=== PATIENT | female | born 1960 | race Caucasian/White ===

== ENCOUNTER 2021-02-27 09:58 | Observation (INO) ==
[2021-02-27] MEDS ORDERED: Aspirin 81 MG TAB.CHEW PO SCH (11:15)
[2021-02-27 11:18] LABS: Basophils # 0.1 K/mcL (0.0-0.2); Basophils % 1.8 %; Eosinophils # 0.4 K/mcL (0.0-0.6); Hematocrit 38.5 % (35.3-44.9); Hemoglobin 12.6 g/dL (11.5-15.4); Immature Granulocytes % 0.3 % (0-4); Lymphocytes # 1.8 K/mcL (0.6-4.6); Lymphocytes % 24.7 %; Mean Corpuscular HGB Conc 32.7 g/dL (31.6-35.5); Mean Corpuscular Hemoglobin 28.8 pg (28.0-33.3); Mean Corpuscular Volume 88.1 fL (83.0-100.0); Monocytes # 0.6 K/mcL (0.0-1.3); Monocytes % 8.7 %; Neutrophils # 4.3 K/mcL (1.6-8.9); Platelet Count 280 K/mcL (140-400); Red Blood Count 4.37 M/mcL (3.82-4.97); Red Cell Distribution Width 14.8 % (11.5-14.5); Segmented Neutrophils % 59.5 %; White Blood Count 7.2 K/mcL (4.3-11.1)
[2021-02-27 11:24] LABS: Prothrombin Time 11.4 Seconds (9.4-12.1)
[2021-02-27 11:27] LABS: Activated Partial Thrombo Time 27.9 Seconds (26.0-36.0)
[2021-02-27 11:28] LABS: Bilirubin,Urine Negative (Negative); Blood,Urine Negative (Negative); Clarity,Urine Clear (Clear); Color,Urine Colorless (Yellow); Glucose,Urine (UA) Normal (Normal); Ketones,Urine Negative (Negative); Leukocyte Esterase,Urine Negative (Negative); Nitrite,Urine Negative (Negative); PH,Urine 7.5 pH Units (5.0-8.0); Protein,Urine Negative (Neg-Trace); Specific Gravity,Urine 1.007 (1.010-1.025); Urobilinogen,Urine Normal (Normal)
[2021-02-27 11:53] LABS: BUN/Creatinine Ratio 18 (6-26); Blood Urea Nitrogen 16 mg/dL (8-23); Calcium 9.3 mg/dL (8.6-10.3); Carbon Dioxide 24 mEq/L (23-29); Chloride 110 mEq/L (98-107); Glucose 79 mg/dL (70-105); Osmolality,Calculated 294 (280-300); Potassium 3.8 mEq/L (3.5-5.1); Sodium 142 mEq/L (136-145); Troponin I < 0.03 ng/mL (< 0.04); eGFR For African Americans > 60 (> 60); eGFR For Non-African Americans > 60 (> 60)
[2021-02-27] MEDS ORDERED: Isovue-370 500 ML BOTTLE IVP ONE (11:58)
[2021-02-27 12:46] LABS: Magnesium 2.1 mg/dL (1.6-2.6); Phosphorous 2.5 mg/dL (2.7-4.5)
[2021-02-27] MEDS ORDERED: Ondansetron ODT 4 MG TAB.RAPDIS SL PRN (14:13)
[2021-02-27] MEDS ORDERED: Melatonin 3 MG TABLET PO PRN (14:13)
[2021-02-27] MEDS ORDERED: Naloxone 0.4 MG/ML INJ IVP PRN (14:13)
[2021-02-27] MEDS ORDERED: Mag Hydrox/Al Hydrox/Simeth 30 ML UDC PO PRN (14:13)
[2021-02-27] MEDS ORDERED: MOM Conc 10 ML UD.LIQ PO PRN (14:13)
[2021-02-27] MEDS ORDERED: Perflutren Lipid Microsphere 1.3 ML in 0.9 % Sodium Chloride 8.7 ML IVP PRN (14:20)
[2021-02-27] MEDS: Acetaminophen 325 MG TABLET PO PRN (15:49)
[2021-02-28 05:14] LABS: Hematocrit 37.4 % (35.3-44.9); Mean Corpuscular HGB Conc 32.1 g/dL (31.6-35.5); Mean Corpuscular Hemoglobin 28.7 pg (28.0-33.3); Mean Corpuscular Volume 89.5 fL (83.0-100.0); Mean Platelet Volume 10.7 fL (9.4-12.4); Platelet Count 266 K/mcL (140-400); Red Blood Count 4.18 M/mcL (3.82-4.97); Red Cell Distribution Width 15.1 % (11.5-14.5); White Blood Count 7.3 K/mcL (4.3-11.1)
[2021-02-28] MEDS: *HR* Enoxaparin 40 MG/0.4 ML SYRINGE SQ SCH (05:34)
[2021-02-28 05:36] LABS: Alanine Aminotransferase 13 Units/L (7-52); Albumin 3.6 g/dL (3.5-5.7); Albumin/Globulin Ratio 1.4 (1.1-2.2); Alkaline Phosphatase 52 Units/L (34-104); Aspartate Amino Transferase 13 Units/L (13-39); BUN/Creatinine Ratio 19 (6-26); Bilirubin,Total 0.4 mg/dL (0.3-1.0); Blood Urea Nitrogen 17 mg/dL (8-23); Calcium 8.4 mg/dL (8.6-10.3); Carbon Dioxide 23 mEq/L (23-29); Chloride 111 mEq/L (98-107); Chol/HDL Ratio 3.7 (0-4.9); Cholesterol 151 mg/dL (< 200); Globulin 2.6 g/dL (2.4-3.5); Glucose 76 mg/dL (70-105); HDL Cholesterol 41 mg/dL (40-59); LDL Cholesterol,Calculated 90 mg/dL (< 100); Osmolality,Calculated 292 (280-300); Potassium 3.8 mEq/L (3.5-5.1); Sodium 141 mEq/L (136-145); Total Protein 6.2 g/dL (6.4-8.9); Triglycerides 99 mg/dL (< 150); eGFR For African Americans > 60 (> 60); eGFR For Non-African Americans > 60 (> 60)
[2021-02-28] MEDS ORDERED: Regadenoson 0.4 MG/5 ML SYRINGE IVP ONE (06:35)
[2021-02-28 08:10] LABS: Estimated Average Glucose 111 mg/dl; Hemoglobin A1C 5.5 %
[2021-02-28] MEDS: Aspirin 81 MG TAB.CHEW PO SCH (09:37)
[2021-02-28] MEDS: Acetaminophen 325 MG TABLET PO PRN ×2 (09:37→16:30)
[2021-02-28] MEDS: FLUoxetine 20 MG CAPSULE PO SCH (16:28)
[2021-03-01] MEDS: Acetaminophen 325 MG TABLET PO PRN ×2 (03:31→16:27)
[2021-03-01] MEDS: *HR* Enoxaparin 40 MG/0.4 ML SYRINGE SQ SCH (03:31)
[2021-03-01] MEDS: FLUoxetine 20 MG CAPSULE PO SCH (07:40)
[2021-03-01] MEDS: Verapamil ER (24 HR) 240 MG TABLET.ER PO SCH (07:40)
[2021-03-01] MEDS: Aspirin 81 MG TAB.CHEW PO SCH (07:40)
[2021-03-02] MEDS: *HR* Enoxaparin 40 MG/0.4 ML SYRINGE SQ SCH (05:43)
[2021-03-02] MEDS: Aspirin 81 MG TAB.CHEW PO SCH (07:25)
[2021-03-02] MEDS: FLUoxetine 20 MG CAPSULE PO SCH (07:25)
[2021-03-02] MEDS: Verapamil ER (24 HR) 240 MG TABLET.ER PO SCH (07:25)
[2021-03-02] MEDS ORDERED: Heparin 1,000 UNITS/500 mL 500 ML ONE (12:46)
[2021-03-02] MEDS ORDERED: *HR* Heparin 10,000 UNIT/10 ML VIAL ONE (12:46)
[2021-03-02] MEDS ORDERED: 0.9 % Sodium Chloride 1,000 ML ONE (12:46)
[2021-03-02] MEDS ORDERED: ISOVUE-370 200 ML INFUS..BTL ONE (12:47)
[2021-03-02] MEDS ORDERED: Nitroglycerin 1,000 MCG/5 ML VIAL IV ONE (12:47)
[2021-03-02] MEDS ORDERED: *HR* Midazolam HCl 2 MG/2 ML VIAL ONE (13:09)
[2021-03-02] MEDS ORDERED: *HR* FentaNYL (PF) 100 MCG/2 ML VIAL ONE (13:09)
[2021-03-03] MEDS: *HR* Enoxaparin 40 MG/0.4 ML SYRINGE SQ SCH (05:50)
[2021-03-03] MEDS: Aspirin 81 MG TAB.CHEW PO SCH (07:15)
[2021-03-03] MEDS: FLUoxetine 20 MG CAPSULE PO SCH (07:16)
[2021-03-03 08:15] LABS: Hematocrit 34.9 % (35.3-44.9); Hemoglobin 11.5 g/dL (11.5-15.4); Mean Corpuscular Hemoglobin 29.2 pg (28.0-33.3); Mean Corpuscular Volume 88.6 fL (83.0-100.0); Mean Platelet Volume 10.6 fL (9.4-12.4); Platelet Count 225 K/mcL (140-400); Red Blood Count 3.94 M/mcL (3.82-4.97); Red Cell Distribution Width 14.6 % (11.5-14.5); White Blood Count 9.4 K/mcL (4.3-11.1)
[2021-03-03 08:35] LABS: Alanine Aminotransferase 12 Units/L (7-52); Albumin 3.4 g/dL (3.5-5.7); Albumin/Globulin Ratio 1.4 (1.1-2.2); Alkaline Phosphatase 54 Units/L (34-104); Aspartate Amino Transferase 13 Units/L (13-39); BUN/Creatinine Ratio 22 (6-26); Bilirubin,Total 0.4 mg/dL (0.3-1.0); Blood Urea Nitrogen 19 mg/dL (8-23); Calcium 8.3 mg/dL (8.6-10.3); Carbon Dioxide 21 mEq/L (23-29); Chloride 112 mEq/L (98-107); Globulin 2.4 g/dL (2.4-3.5); Glucose 81 mg/dL (70-105); Osmolality,Calculated 287 (280-300); Potassium 4.1 mEq/L (3.5-5.1); Sodium 138 mEq/L (136-145); Total Protein 5.8 g/dL (6.4-8.9); eGFR For African Americans > 60 (> 60); eGFR For Non-African Americans > 60 (> 60)
[2021-03-03] MEDS ORDERED: Verapamil ER (24 HR) 180 MG TABLET.ER PO SCH (09:00)
[2021-03-03] MEDS ORDERED: Isosorbide MONOnitrate (24 HR) 30 MG TAB.ER.24H PO SCH (09:00)
[2021-03-03 10:54] VITALS: BP 119/72
[2021-03-03] MEDS: Acetaminophen 325 MG TABLET PO PRN (10:57)
[2021-03-03] MEDS ORDERED: SUMAtriptan succinate 50 MG TABLET PO ONE (11:53)
== END 2021-03-03 14:39 | disposition home or self-care (01) ==
LOC: EMEROOARM 09:58 → 3BNU 09:58 → SUATTDRO 13:47 → 3BNU 14:22
PROVIDERS: ADMIT Internal Medicine; ATTEND Registered Nurse